=== PATIENT | male | born 1995 | race Caucasian/White ===

== ENCOUNTER → 2016-06-25 | Day surgery (SDC) | payer OTHER ==
[~2016-06-25] VITALS: Ht 163.8 cm; Wt 56.7 kg
[~2016-06-25] MED LIST: HYDROCODON-ACE1 EAC2 PO; PERCOCET 5-3251 EACH PO; STOOL SOFTENER250 MG PO; ZOFRAN4 MG PO
== END | disposition home or self-care (01) ==
LOC: OR 10:14
PROVIDERS: Orthopaedic Surgery
PROC: 0QPH05Z Removal of External Fixation Device from Left Tibia, Open Approach (ICD-10-PCS; 2016-06-25)
PROC: 0QSH04Z Reposition Left Tibia with Internal Fixation Device, Open Approach (ICD-10-PCS; principal; 2016-06-25 16:05)
PROC: 0SBG4ZZ Excision of Left Ankle Joint, Percutaneous Endoscopic Approach (ICD-10-PCS; 2016-06-25 16:05)
DX: S82.872A Displaced pilon fracture of left tibia, initial encounter for closed fracture (principal); S82.62XA Displaced fracture of lateral malleolus of left fibula, initial encounter for closed fracture; M93.972 Osteochondropathy, unspecified, left ankle and foot; M65.9 Synovitis and tenosynovitis, unspecified; F17.210 Nicotine dependence, cigarettes, uncomplicated; Z79.891 Long term (current) use of opiate analgesic; Z79.899 Other long term (current) drug therapy; X58.XXXA Exposure to other specified factors, initial encounter
CPT/HCPCS: 73610; 76000; C1713; C1763; J0171; J0690; J1100; J1885; J2250; J2405; J2710; J3010; J7120